=== PATIENT | female | born 1975 | race Caucasian/White ===

== ENCOUNTER 2022-10-23 08:31 | Emergency (ER) | payer MEDICAID, OTHER ==
[~2022-10-23] VITALS: Ht 172.7 cm; Wt 68.0 kg
[2022-10-23 08:39] VITALS: BP 131/73
[2022-10-23 09:24] LABS: Basophils # (auto) 0.1 10 ^3/uL (0-0.2); Basophils % (auto) 1.6 % (0.0-2.0); Eosinophils # (auto) 0.5 10 ^3/uL (0-0.8); Eosinophils % (auto) 7.3 % (0.0-7.0); Hematocrit 26.5 % (36.0-46.0); Hemoglobin 7.7 g/dL (12.2-16.2); Lymphocytes # (auto) 1.9 10 ^3/uL (0.4-5.4); Lymphocytes % (auto) 29.9 % (10.0-50.0); Mean Corpuscular Hemoglobin 20.6 pg (28.0-32.0); Mean Corpuscular Hgb Conc. 28.9 g/dL (32.0-36.0); Mean Corpuscular Volume 71.2 fL (80.0-100.0); Monocytes # (auto) 0.3 10 ^3/uL (0-1.3); Monocytes % (auto) 4.8 % (0.0-12.0); Neutrophils # (auto) 3.6 10 ^3/uL (1.6-8.6); Neutrophils % (auto) 56.4 % (37.0-80.0); Nucleated Red Blood Cells % 0.1 %; Red Blood Cells 3.72 10^6/uL (4.0-5.20); Red Cell Distribution Width 17.3 % (11.8-14.3); White Blood Cell 6.4 10^3/uL (4.4-10.8)
[2022-10-23 10:58] LABS: Urine Bacteria MANY /hpf (None Seen); Urine Blood Negative /uL (Negative); Urine WBC 2 /hpf (0 - 5)
[2022-10-23 11:18] LABS: Calcium 8.5 mg/dL (8.5-10.1); Potassium 3.7 mmol/L (3.5-5.1)
[2022-10-23 11:22] LABS: Albumin 3.5 g/dL (3.4-5.0); BUN/Creatinine Ratio 13.7
[2022-10-23 11:24] LABS: Bilirubin, Total 0.2 mg/dL (0.2-1.0); Total Protein 6.2 g/dL (6.4-8.2)
[2022-10-23] MEDS ORDERED: FERR-20 PO (11:42)
== END 2022-10-23 13:36 | disposition left against medical advice (07) ==
LOC: ER 08:31
DX: D64.9 Anemia, unspecified (principal); F41.9 Anxiety disorder, unspecified; Z88.5 Allergy status to narcotic agent
CPT/HCPCS: 36415; 71045; 80053; 81001; 83735; 84484; 85025; 93005

== ENCOUNTER 2022-12-30 06:13 | Inpatient (IN) | payer MEDICAID ==
[~2022-12-30] VITALS: Ht 170.2 cm; Wt 70.4 kg
[~2022-12-30 06:13] MED LIST: BACDST PO; FERR-20 PO; SUMA50TA2 PO
[2022-12-30 07:05] LABS: Basophils # (auto) 0.1 10 ^3/uL (0-0.2); Basophils % (auto) 1.3 % (0.0-2.0); Eosinophils # (auto) 0.3 10 ^3/uL (0-0.8); Monocytes # (auto) 0.6 10 ^3/uL (0-1.3); Neutrophils # (auto) 4.4 10 ^3/uL (1.6-8.6); White Blood Cell 9.1 10^3/uL (4.4-10.8)
[2022-12-30 07:09] LABS: Eosinophils % (auto) 3.2 % (0.0-7.0); Lymphocytes # (auto) 3.8 10 ^3/uL (0.4-5.4); Lymphocytes % (auto) 41.4 % (10.0-50.0); Mean Corpuscular Hemoglobin 18.8 pg (28.0-32.0); Mean Corpuscular Hgb Conc. 28.1 g/dL (32.0-36.0); Monocytes % (auto) 6.2 % (0.0-12.0); Neutrophils % (auto) 47.9 % (37.0-80.0); Nucleated Red Blood Cells % 0.1 %; Red Blood Cells 3.73 10^6/uL (4.0-5.20); Red Cell Distribution Width 18.2 % (11.8-14.3)
[2022-12-30 07:35] LABS: Albumin 3.8 g/dL (3.4-5.0); BUN/Creatinine Ratio 13.5; Calcium 8.3 mg/dL (8.5-10.1); Potassium 4.7 mmol/L (3.5-5.1)
[2022-12-30 07:39] LABS: Bilirubin, Total 0.3 mg/dL (0.2-1.0)
[2022-12-30 09:09] LABS: Urine Bacteria FEW /hpf (None Seen); Urine Blood Negative /uL (Negative); Urine Specific Gravity 1.004 (1.001-1.035); Urine WBC <1 /hpf (0 - 5)
[2022-12-30] MEDS ORDERED: ACETAMINOPHEN 325 MG TAB PO PRN (13:15)
[2022-12-30] MEDS ORDERED: MORPHINE SULFATE INJ 2 MG/ml SYRG IV PRN ×2 (13:15)
[2022-12-30] MEDS ORDERED: ONDANSETRON HCL 4 MG/2 ML VIAL IV PRN (13:15)
[2022-12-30] MEDS ORDERED: NITROGLYCERIN 0.4 MG SL TAB SL PRN (13:15)
[2022-12-30 13:40] LABS: % Iron Saturation 3.2 % (15-50)
[2022-12-30] MEDS ORDERED: PANTOPRAZOLE 40 MG/10 ML VIAL INJ IV ONE (13:45)
[2022-12-30] MEDS ORDERED: SUMAtriptan SUCCINATE 25 MG TAB PO PRN (14:00)
[2022-12-30 14:15] LABS: Ferritin 1.9 ng/mL (10-322)
[2022-12-30 14:26] LABS: INR 0.96 (0.9-1.15)
[2022-12-30 16:50] VITALS: BP 82/41
[2022-12-30 17:10] VITALS: BP 94/51
[2022-12-30 17:26] VITALS: BP 88/43
[2022-12-30 18:05] VITALS: BP 95/53
[2022-12-30 18:54] VITALS: BP 89/54
[2022-12-30] MEDS: FERROUS SULFATE 325mg EC TAB PO SCH (19:03)
[2022-12-30 19:45] VITALS: BP 103/70
[2022-12-30 22:14] LABS: Hematocrit 27.7 % (36.0-46.0); Hemoglobin 8.2 g/dL (12.2-16.2)
[2022-12-30] MEDS: HYDROcodone-ACET 5/325MG TAB PO PRN (22:29)
[2022-12-31] MEDS ORDERED: SODIUM CHLORIDE 0.9% 1,000 ML IV ONE (00:15)
[2022-12-31] MEDS: HYDROcodone-ACET 5/325MG TAB PO PRN ×2 (02:57→20:15)
[2022-12-31 06:36] LABS: Hemoglobin 7.5 g/dL (12.2-16.2)
[2022-12-31 06:40] LABS: Hematocrit 25.3 % (36.0-46.0); Mean Corpuscular Hemoglobin 20.8 pg (28.0-32.0); Mean Corpuscular Hgb Conc. 29.5 g/dL (32.0-36.0); Mean Corpuscular Volume 70.6 fL (80.0-100.0); Red Blood Cells 3.59 10^6/uL (4.0-5.20); White Blood Cell 5.3 10^3/uL (4.4-10.8)
[2022-12-31 06:53] LABS: Red Cell Distribution Width 21.2 % (11.8-14.3)
[2022-12-31 06:54] LABS: Band Neutrophils % (manual) 0; Basophils % (manual) 0 (0.0-2.0); Blast Cells 0; Eosinophils % (manual) 0 (0-7); Metamyelocytes % 0; Myelocytes % 0; Promyelocytes % 0; Reactive Lymphocytes 0
[2022-12-31 07:32] LABS: Albumin 3.1 g/dL (3.4-5.0); Potassium 3.9 mmol/L (3.5-5.1)
[2022-12-31 07:36] LABS: BUN/Creatinine Ratio 12.7; Bilirubin, Total 0.3 mg/dL (0.2-1.0); Total Protein 5.7 g/dL (6.4-8.2)
[2022-12-31] MEDS: PANTOPRAZOLE 40 MG/10 ML VIAL INJ IV SCH (08:16)
[2022-12-31] MEDS: FERROUS SULFATE 325mg EC TAB PO SCH ×2 (08:16→18:44)
[2022-12-31 08:38] LABS: Folate (Folic Acid) 6.61 ng/mL (5.38-24)
[2022-12-31 08:53] LABS: Lymphocytes % (manual) 68 (10.0-50.0); Monocytes % (manual) 6 (0-12)
[2022-12-31 18:06] VITALS: BP 118/70
[2022-12-31] MEDS ORDERED: IBUP800T26 PO (19:31)
[2022-12-31] MEDS ORDERED: PROP20TA73 PO (19:31)
[2022-12-31 22:00] VITALS: BP 90/48
[2023-01-01] MEDS: HYDROcodone-ACET 5/325MG TAB PO PRN ×3 (00:28→09:29)
[2023-01-01 05:00] VITALS: BP 91/51
[2023-01-01 06:37] LABS: Basophils # (auto) 0.1 10 ^3/uL (0-0.2); Hemoglobin 7.9 g/dL (12.2-16.2); Monocytes # (auto) 0.4 10 ^3/uL (0-1.3); Monocytes % (auto) 6.1 % (0.0-12.0); Nucleated Red Blood Cells % 0.1 %; White Blood Cell 7.1 10^3/uL (4.4-10.8)
[2023-01-01 06:38] LABS: Basophils % (auto) 1.9 % (0.0-2.0); Eosinophils # (auto) 0.4 10 ^3/uL (0-0.8); Eosinophils % (auto) 5.1 % (0.0-7.0); Hematocrit 25.7 % (36.0-46.0); Lymphocytes # (auto) 3.2 10 ^3/uL (0.4-5.4); Lymphocytes % (auto) 45.7 % (10.0-50.0); Mean Corpuscular Hemoglobin 21.5 pg (28.0-32.0); Mean Corpuscular Hgb Conc. 30.7 g/dL (32.0-36.0); Neutrophils # (auto) 2.9 10 ^3/uL (1.6-8.6); Neutrophils % (auto) 41.2 % (37.0-80.0); Red Blood Cells 3.67 10^6/uL (4.0-5.20)
[2023-01-01 06:47] LABS: BUN/Creatinine Ratio 18.8; Calcium 8.4 mg/dL (8.5-10.1); Potassium 3.9 mmol/L (3.5-5.1)
[2023-01-01 06:49] LABS: Red Cell Distribution Width 21.5 % (11.8-14.3)
[2023-01-01] MEDS ORDERED: BUTA1CAP PO (07:04)
[2023-01-01 08:00] VITALS: BP 93/52
[2023-01-01] MEDS ORDERED: FLUO60TA7 PO (08:14)
[2023-01-01] MEDS: FERROUS SULFATE 325mg EC TAB PO SCH (08:37)
[2023-01-01] MEDS: PANTOPRAZOLE 40 MG/10 ML VIAL INJ IV SCH (08:37)
[2023-01-01 09:00] VITALS: BP 93/52
[2023-01-01 11:31] VITALS: BP 93/52
== END 2023-01-01 14:58 | disposition left against medical advice (07) | DRG 663 ==
LOC: ER 06:13 → TELE 13:09 → TELE-WESTW 12-31 17:50
PROVIDERS: ADMIT Registered Nurse; ATTEND Internal Medicine Pulmonary Disease
PROC: 30233N1 Transfusion of Nonautologous Red Blood Cells into Peripheral Vein, Percutaneous Approach (ICD-10-PCS; principal; 2022-12-30)
DX: D62 Acute posthemorrhagic anemia (principal); E66.01 Morbid (severe) obesity due to excess calories; G43.909 Migraine, unspecified, not intractable, without status migrainosus; I10 Essential (primary) hypertension; F41.9 Anxiety disorder, unspecified; Z53.29 Procedure and treatment not carried out because of patient's decision for other reasons; Z82.49 Family history of ischemic heart disease and other diseases of the circulatory system; Z98.84 Bariatric surgery status; Z68.24 Body mass index [BMI] 24.0-24.9, adult
CPT/HCPCS: 36415; 80048; 80053; 81001; 82607; 82728; 82746; 83540; 83550; 83615; 85007; 85014; 85018; 85025; 85027; 85045; 85049; 85384; 85610; 86850; 86900; 86901; 86920; 87426; 96361; 96374; C9113; G0378

== ENCOUNTER 2023-01-17 04:14 | Emergency (ER) | payer MEDICAID ==
[~2023-01-17] VITALS: Ht 170.2 cm; Wt 68.2 kg
[~2023-01-17 04:14] MED LIST changes: +BUTA1CAP PO; +FLUO60TA7 PO; +IBUP800T26 PO; +PROP20TA73 PO
[2023-01-17 05:20] VITALS: BP 110/62
[2023-01-17 05:31] LABS: Urine Bacteria MOD /hpf (None Seen); Urine Blood Negative /uL (Negative); Urine Specific Gravity 1.008 (1.001-1.035); Urine WBC <1 /hpf (0 - 5)
[2023-01-17 05:53] LABS: Eosinophils # (auto) 0.3 10 ^3/uL (0-0.8); Nucleated Red Blood Cells % 0.1 %
[2023-01-17 06:00] LABS: Basophils # (auto) 0 10 ^3/uL (0-0.2); Basophils % (auto) 0.6 % (0.0-2.0); Eosinophils % (auto) 4.2 % (0.0-7.0); Lymphocytes # (auto) 3.8 10 ^3/uL (0.4-5.4); Lymphocytes % (auto) 48.4 % (10.0-50.0); Mean Corpuscular Hemoglobin 21.2 pg (28.0-32.0); Mean Corpuscular Hgb Conc. 30.8 g/dL (32.0-36.0); Mean Corpuscular Volume 68.7 fL (80.0-100.0); Monocytes # (auto) 0.5 10 ^3/uL (0-1.3); Neutrophils # (auto) 3.2 10 ^3/uL (1.6-8.6); Neutrophils % (auto) 40.8 % (37.0-80.0); Red Blood Cells 3.79 10^6/uL (4.0-5.20); White Blood Cell 7.8 10^3/uL (4.4-10.8)
[2023-01-17 06:01] LABS: Red Cell Distribution Width 25.1 % (11.8-14.3)
[2023-01-17 06:11] LABS: Albumin 3.4 g/dL (3.4-5.0); Calcium 8.2 mg/dL (8.5-10.1); Potassium 3.9 mmol/L (3.5-5.1)
[2023-01-17 06:17] LABS: BUN/Creatinine Ratio 16.4 (10.0-20.0); Bilirubin, Total 0.2 mg/dL (0.2-1.0); Total Protein 6.5 g/dL (6.4-8.2)
== END 2023-01-17 07:38 | disposition home or self-care (01) ==
LOC: ER 04:14
DX: D64.9 Anemia, unspecified (principal); Z88.2 Allergy status to sulfonamides
CPT/HCPCS: 36415; 80053; 81001; 85025; 86850; 86900; 86901

== ENCOUNTER 2023-03-05 09:16 | Inpatient (IN) | payer MEDICAID ==
[~2023-03-05] VITALS: Ht 170.2 cm; Wt 67.7 kg
[2023-03-05 09:50] LABS: Hematocrit 29.1 % (36.0-46.0); Hemoglobin 8.8 g/dL (12.2-16.2); Lymphocytes # (auto) 2.2 10 ^3/uL (0.4-5.4); Lymphocytes % (auto) 44.3 % (10.0-50.0); Mean Corpuscular Hemoglobin 21.7 pg (28.0-32.0); Mean Corpuscular Hgb Conc. 30.2 g/dL (32.0-36.0); Neutrophils # (auto) 2.2 10 ^3/uL (1.6-8.6); Red Blood Cells 4.05 10^6/uL (4.0-5.20); White Blood Cell 4.9 10^3/uL (4.4-10.8)
[2023-03-05 09:52] LABS: Basophils # (auto) 0 10 ^3/uL (0-0.2); Eosinophils # (auto) 0.2 10 ^3/uL (0-0.8); Eosinophils % (auto) 3.1 % (0.0-7.0); Mean Corpuscular Volume 71.9 fL (80.0-100.0); Monocytes # (auto) 0.4 10 ^3/uL (0-1.3); Monocytes % (auto) 7.3 % (0.0-12.0); Neutrophils % (auto) 44.3 % (37.0-80.0); Nucleated Red Blood Cells % 0.1 %
[2023-03-05 10:13] LABS: Potassium 3.5 mmol/L (3.5-5.1)
[2023-03-05 10:25] LABS: Albumin 3.6 g/dL (3.4-5.0); BUN/Creatinine Ratio 11.6 (10.0-20.0); Bilirubin, Total 0.2 mg/dL (0.2-1.0); Calcium 8.6 mg/dL (8.5-10.1); Total Protein 6.8 g/dL (6.4-8.2)
[2023-03-05 11:56] LABS: Urine Bacteria NONE SEEN /hpf (None Seen); Urine Blood Negative /uL (Negative); Urine Specific Gravity 1.014 (1.001-1.035); Urine WBC <1 /hpf (0 - 5)
[2023-03-05] MEDS ORDERED: ACETAMINOPHEN 500 MG TAB PO ONE (14:30)
[2023-03-05] MEDS ORDERED: SODIUM CHLORIDE 0.9% 1,000 ML IV ONE (14:30)
[2023-03-05] MEDS ORDERED: MORPHINE SULFATE INJ 2 MG/ml SYRG IV PRN (15:45)
[2023-03-05] MEDS ORDERED: NITROGLYCERIN 0.4 MG SL TAB SL PRN (15:45)
[2023-03-05] MEDS ORDERED: ACETAMINOPHEN 325 MG TAB PO PRN (15:45)
[2023-03-05] MEDS: SODIUM CHLORIDE 0.9% 1,000 ML IV SCH ×2 (18:24→23:12)
[2023-03-05] MEDS: FERROUS SULFATE 325mg EC TAB PO SCH (18:29)
[2023-03-05] MEDS: MORPHINE SULFATE INJ 2 MG/ml SYRG IV PRN ×2 (18:30→23:11)
[2023-03-05 20:44] LABS: Alcohol, Urine < 3.0 mg/dL (0-10); Barbiturate Scree,Urine POSITIVE (NEGATIVE); Benzodiazephine Screen, Urine NEGATIVE (NEGATIVE); Cannabinoid Screen, Urine NEGATIVE (NEGATIVE); Cocaine Screen, Urine NEGATIVE (NEGATIVE); Opiate Scree,Urine NEGATIVE (NEGATIVE); Phencyclidine Screen, Urine NEGATIVE (NEGATIVE)
[2023-03-05 20:51] LABS: Amphetamine Screen, Urine NEGATIVE (NEGATIVE)
[2023-03-05] MEDS: SUMAtriptan SUCCINATE 25 MG TAB PO PRN (21:34)
[2023-03-05 22:12] VITALS: BP 108/57
[2023-03-06 05:00] VITALS: BP 97/52
[2023-03-06] MEDS: HYDROcodone-ACET 5/325MG TAB PO PRN ×3 (05:27→17:48)
[2023-03-06 06:15] LABS: Basophils # (auto) 0.1 10 ^3/uL (0-0.2); Basophils % (auto) 1.4 % (0.0-2.0); Eosinophils # (auto) 0.2 10 ^3/uL (0-0.8)
[2023-03-06 06:18] LABS: Eosinophils % (auto) 2.5 % (0.0-7.0); Hematocrit 26.4 % (36.0-46.0); Lymphocytes # (auto) 2.6 10 ^3/uL (0.4-5.4); Mean Corpuscular Hemoglobin 22.1 pg (28.0-32.0); Mean Corpuscular Hgb Conc. 30.2 g/dL (32.0-36.0); Mean Corpuscular Volume 73.1 fL (80.0-100.0); Monocytes # (auto) 0.3 10 ^3/uL (0-1.3); Monocytes % (auto) 5.6 % (0.0-12.0); Neutrophils # (auto) 2.9 10 ^3/uL (1.6-8.6); Neutrophils % (auto) 47.5 % (37.0-80.0); Nucleated Red Blood Cells % 0.1 %; Red Blood Cells 3.62 10^6/uL (4.0-5.20); White Blood Cell 6.1 10^3/uL (4.4-10.8)
[2023-03-06 06:19] LABS: Red Cell Distribution Width 21.3 % (11.8-14.3)
[2023-03-06] MEDS: SODIUM CHLORIDE 0.9% 1,000 ML IV SCH ×3 (06:24→22:30)
[2023-03-06 06:31] LABS: Albumin 3.1 g/dL (3.4-5.0); Calcium 8.1 mg/dL (8.5-10.1); Potassium 3.7 mmol/L (3.5-5.1)
[2023-03-06 06:35] LABS: BUN/Creatinine Ratio 9.3 (10.0-20.0); Bilirubin, Total 0.3 mg/dL (0.2-1.0)
[2023-03-06 08:30] VITALS: BP 101/50
[2023-03-06] MEDS: FERROUS SULFATE 325mg EC TAB PO SCH ×2 (09:54→17:10)
[2023-03-06] MEDS: FLUoxetine HCL 20 MG CAP PO SCH (09:54)
[2023-03-06] MEDS ORDERED: KETOROLAC TROMETH 30 MG/ML 1ML VIAL IV ONE (10:00)
[2023-03-06] MEDS: MORPHINE SULFATE INJ 2 MG/ml SYRG IV PRN (10:02)
[2023-03-06] MEDS: MAGNESIUM OXIDE 400 MG TAB PO SCH (11:39)
[2023-03-06 12:30] VITALS: BP 105/64
[2023-03-06] MEDS: ONDANSETRON HCL 4 MG/2 ML VIAL IV PRN ×2 (15:12→19:28)
[2023-03-06 16:45] VITALS: BP_SYST 106; BP_SYST 115; BP_SYST 97; BP_DIAS 53; BP_DIAS 61; BP_DIAS 64
[2023-03-06 17:00] VITALS: BP 97/53
[2023-03-06 22:00] VITALS: BP 116/55
[2023-03-07] VITALS (8 sets, daily range): BP systolic 92–143; BP diastolic 48–72
[2023-03-07] MEDS: HYDROcodone-ACET 5/325MG TAB PO PRN ×5 (00:04→22:52)
[2023-03-07] MEDS: SODIUM CHLORIDE 0.9% 1,000 ML IV SCH (06:29)
[2023-03-07 08:56] LABS: Basophils # (auto) 0.1 10 ^3/uL (0-0.2); Eosinophils # (auto) 0.2 10 ^3/uL (0-0.8); Lymphocytes # (auto) 1.6 10 ^3/uL (0.4-5.4); Monocytes # (auto) 0.3 10 ^3/uL (0-1.3); Nucleated Red Blood Cells % 0.2 %
[2023-03-07 08:58] LABS: Basophils % (auto) 1.6 % (0.0-2.0); Eosinophils % (auto) 5.4 % (0.0-7.0); Lymphocytes % (auto) 44.6 % (10.0-50.0); Mean Corpuscular Hgb Conc. 30.8 g/dL (32.0-36.0); Mean Corpuscular Volume 71.4 fL (80.0-100.0); Monocytes % (auto) 7.5 % (0.0-12.0); Neutrophils # (auto) 1.5 10 ^3/uL (1.6-8.6); Neutrophils % (auto) 40.9 % (37.0-80.0); Red Blood Cells 3.08 10^6/uL (4.0-5.20); White Blood Cell 3.6 10^3/uL (4.4-10.8)
[2023-03-07] MEDS: FERROUS SULFATE 325mg EC TAB PO SCH ×2 (08:58→18:21)
[2023-03-07] MEDS: MAGNESIUM OXIDE 400 MG TAB PO SCH (08:58)
[2023-03-07] MEDS: FLUoxetine HCL 20 MG CAP PO SCH (08:59)
[2023-03-07 09:16] LABS: Red Cell Distribution Width 21.6 % (11.8-14.3)
[2023-03-07 09:23] LABS: Hemoglobin 6.8 g/dL (12.2-16.2)
[2023-03-08] MEDS: HYDROcodone-ACET 5/325MG TAB PO PRN ×5 (03:04→21:27)
[2023-03-08 05:00] VITALS: BP 116/68
[2023-03-08 06:26] LABS: Hematocrit 29.3 % (36.0-46.0); Monocytes # (auto) 0.4 10 ^3/uL (0-1.3); Neutrophils # (auto) 2.3 10 ^3/uL (1.6-8.6); Red Blood Cells 4.02 10^6/uL (4.0-5.20); White Blood Cell 5.7 10^3/uL (4.4-10.8)
[2023-03-08 06:29] LABS: Basophils # (auto) 0 10 ^3/uL (0-0.2); Basophils % (auto) 0.8 % (0.0-2.0); Eosinophils # (auto) 0.2 10 ^3/uL (0-0.8); Eosinophils % (auto) 3.6 % (0.0-7.0); Lymphocytes # (auto) 2.7 10 ^3/uL (0.4-5.4); Lymphocytes % (auto) 48.2 % (10.0-50.0); Mean Corpuscular Hemoglobin 22.4 pg (28.0-32.0); Mean Corpuscular Hgb Conc. 30.7 g/dL (32.0-36.0); Monocytes % (auto) 6.9 % (0.0-12.0); Neutrophils % (auto) 40.5 % (37.0-80.0)
[2023-03-08 06:43] LABS: Red Cell Distribution Width 20.7 % (11.8-14.3)
[2023-03-08] MEDS: MAGNESIUM OXIDE 400 MG TAB PO SCH (08:09)
[2023-03-08] MEDS: FLUoxetine HCL 20 MG CAP PO SCH (08:10)
[2023-03-08] MEDS: FERROUS SULFATE 325mg EC TAB PO SCH ×2 (08:10→17:34)
[2023-03-08 09:00] VITALS: BP 109/67
[2023-03-08] MEDS ORDERED: SUMAtriptan SUCCINATE 25 MG TAB PO ONE (11:30)
[2023-03-08] MEDS: SUMAtriptan SUCCINATE 25 MG TAB PO PRN (12:10)
[2023-03-08 13:00] VITALS: BP 125/66
[2023-03-08 16:43] VITALS: BP 125/68
[2023-03-08 22:00] VITALS: BP 104/58
[2023-03-09] MEDS: HYDROcodone-ACET 5/325MG TAB PO PRN ×3 (01:21→09:54)
[2023-03-09 05:00] VITALS: BP 119/69
[2023-03-09] MEDS: FERROUS SULFATE 325mg EC TAB PO SCH (08:18)
[2023-03-09 09:00] VITALS: BP 117/75
[2023-03-09] MEDS: MAGNESIUM OXIDE 400 MG TAB PO SCH (09:54)
[2023-03-09] MEDS: FLUoxetine HCL 20 MG CAP PO SCH (09:55)
[2023-03-09] MEDS: SUMAtriptan SUCCINATE 25 MG TAB PO PRN (09:55)
[2023-03-09 13:00] VITALS: BP 124/58
== END 2023-03-09 13:30 | disposition home or self-care (01) | DRG 201 ==
LOC: ER 09:16 → EDBD 09:16 → TELE 15:42 → TELE-WESTW 22:10
PROVIDERS: ADMIT Registered Nurse; ATTEND Internal Medicine Geriatric Medicine
PROC: 30233N1 Transfusion of Nonautologous Red Blood Cells into Peripheral Vein, Percutaneous Approach (ICD-10-PCS; principal; 2023-03-07)
DX: R00.1 Bradycardia, unspecified (principal); G90.A Postural orthostatic tachycardia syndrome [POTS]; G43.909 Migraine, unspecified, not intractable, without status migrainosus; D64.9 Anemia, unspecified; T44.7X5A Adverse effect of beta-adrenoreceptor antagonists, initial encounter; F17.200 Nicotine dependence, unspecified, uncomplicated; E78.5 Hyperlipidemia, unspecified; F41.9 Anxiety disorder, unspecified; Z98.84 Bariatric surgery status; Z87.11 Personal history of peptic ulcer disease; Y92.89 Other specified places as the place of occurrence of the external cause
CPT/HCPCS: 36415; 70450; 71045; 80053; 80307; 81001; 82306; 82533; 83735; 83880; 84443; 84484; 85025; 86850; 86900; 86901; 86920; 93005; 93306; 93886; 96360; G0378; J1885; J2405

== ENCOUNTER 2025-05-24 13:17 | Emergency (ER) | payer MEDICAID ==
[~2025-05-24] VITALS: Ht 170.2 cm; Wt 68.2 kg
[~2025-05-24 13:17] MED LIST changes: -FERR-20 PO; +FERR325T24 PO; +IBUP-1455 PO; -IBUP800T26 PO; +PROP1TAB53 PO; -PROP20TA73 PO
[2025-05-24 13:33] VITALS: BP 118/60; PULSE 88; RESP 15; TEMP 98.9; O2SAT 100
--- NOTE | 2025-05-24 13:33 | ED.PDOC ---
Back pain HPI HPI Comments 49 y.o female with PMHx of POTS and chronic neck pain, presents to the ED via EMS for a chief complaint of lower back pain radiating to lower extremity. Patient reports back pain presented yesterday when she bent over to pick a bucket up from the ground, states she woke up with a soreness sensation today and sharp right lower extremity pain. Patient described right sided leg as a heaviness sensation with a tingling to bilateral feet. Patient rates pain a 6/10 on the pain scale, states pain is more so on the RLE. She denies any falls, numbness sensation, fever, previous back injuries or surgical intervention. Patient took Gabapentin and Ibuprofen prior to EMS arrival and had some pain relief. Patient notes pain improves when laying flat. Chief Complaint: Back Pain Time Seen by MD: 13:24 Primary Care Provider: Unknown Reviewed Notes: Nurses Notes, Olive Grader Notes, Medications, Allergies Allergies: Coded Allergies: NO KNOWN ALLERGIES (Unverified , 12/30/22) Home Meds Active Scripts Tramadol HCl (Tramadol HCl) 50 Mg Tab, 50 MG PO Q12HP PRN for 7 Days, #14 TAB Prov:THOMAS PERDUE MD 05/24/25 Sulfamethoxazole W/Trimethopri (Bactrim Ds Tablet) 1 Tab Tb, 1 TAB PO BID for 7 Days, #14 TAB Prov:GHISLAINE DICKINSON 10/27/22 Sumatriptan Succinate (Imitrex) 50 Mg Tab, 1 TAB PO BID, #20 TAB Prov:GHISLAINE DICKINSON 10/27/22 Ferrous Sulfate (Ferrous Sulfate) 325 Mg Tab, 325 MG PO BIDWM for 10 Days, #20 MG Prov:ADALBERTO HARMAN MD 10/23/22 Reported Medications Fluoxetine HCl (Fluoxetine) 60 Mg Tab, 20 MG PO DAILY for depression, TAB 01/01/23 Awwevvanrv-Winfghtmvcont-Wgabg (Butalbital/Acetaminophen/ 50-300-40 mg) 1 Cap Cap, 1 CAP PO Q4HR, CAP 01/01/23 Ibuprofen Micronized (Ibuprofen) 800 Mg Tab, 1 TAB PO TID 12/31/22 Propranolol HCl (Propranolol Hydrochloride) 20 Mg Tab, 2 TAB PO QID 12/31/22 Information Source: Patient Mode of Arrival: EMS Timing: Hours Duration: Since onset Location of Back pain: (B) Lower back Radiates to: Posterior: (R) Thigh Radiates to: Medial: (R) Thigh Quality: Sharp Onset: Bending History of: None Past Medical History PAST MEDICAL HISTORY: Anemia, Anxiety Past Medical History (Other): POTS Surgical History: Tonsillectomy Surgical History (Other): Right knee replacement, Sigmoid volvulus and ulcer repair SHIPPING INSPECTOR History: No Pertinent SHIPPING INSPECTOR History Family History Family History: Reviewed,noncontributory to illness Social History Smoker: Other Alcohol: Denies ETOH Use Drugs: Denies Drug Use Lives In: Home Constitutional: denies: chills, diaphoresis, fatigue, fever, malaise, sweats, weakness, others EENTM: denies: blurred vision, double vision, ear bleeding, ear discharge, ear drainage, ear pain, ear ringing, eye pain, eye redness, hearing loss, mouth pain, mouth swelling, nasal discharge, nose bleeding, nose congestion, nose pain, photophobia, tearing, throat pain, throat swelling, voice changes, others Respiratory: denies: cough, hemoptysis, orthopnea, SOB at rest, shortness of breath, SOB with excertion, stridor, wheezing, others Cardiovascular: denies: chest pain, dizzy spells, diaphoresis, Dyspnea on exertion, edema, irregular heart beat, left arm pain, lightheadedness, palpitations, PND, syncope, others Gastrointestinal: denies: abdomen distended, abdominal pain, blood streaked bowels, constipated, diarrhea, dysphagia, difficulty swallowing, hematemesis, melena, nausea, poor appetite, poor fluid intake, rectal bleeding, rectal pain, vomiting, others Genitourinary: denies: abnormal vagina bleeding, burning, dyspareunia, dysuria, flank pain, frequency, hematuria, incontinence, pain, , vagina discharge, urgency, others Neurological: denies: dizziness, fainting, headache, left sided numbness, left sided weakness, numbness, paresthesia, pre-existing deficit, right sided numbness, right sided weakness, seizure, speech problems, tingling, tremors, weakness, others Musculoskeletal: reports: back pain, others (right lower leg pain ); denies: gout, joint pain, joint swelling, muscle pain, muscle stiffness, neck pain Integumetry: denies: bruises, change in color, change in hair/nails, dryness, laceration, lesions, lumps, rash, wounds, others Allergic/Immunocompromised: denies: Difficulty Healing, Frequent Infections, Hives, Itching, others Hematologic/Lymphatic: denies: anemia, blood clots, easy bleeding, easy bruising, swollen glands, others Endocrine: denies: excessive hunger, excessive sweating, excessive thirst, excessive urination, flushing, intolerance to cold, intolerance to heat, unexplained weight gain, unexplained weight loss, others Psychiatric: denies: anxiety, bipolar disorder, depression, hopeless, panic disorder, schizophrenia, sleepless, suicidal, others All Other Systems: Reviewed and Negative Physical Exam General Appearance: Mild Distress HEENT: Normal ENT Inspection, Pharynx Normal, TMs Normal Neck: Full Range of Motion, Non-Tender, Normal, Normal Inspection Respiratory: Chest Non-Tender, Lungs Clear, No Accessory Muscle Use, No Respiratory Distress, Normal Breath Sounds Cardiovascular: No Edema, No JVD, No Murmur, No Gallop, Normal Peripheral Pulses, Regular Rate/Rhythm Breast Exam: Deferred Gastrointestinal: No Organomegaly, Non Tender, No Pulsatile Mass, Normal Bowel Sounds, Soft Genitalia: Deferred Pelvic: Deferred Rectal: Deferred Extremities: No calf tenderness, Normal capillary refill, Normal inspection, Normal range of motion, Non-tender, No pedal edema Musculoskeletal : Location: Bilateral Extremity Location: Back Apperance: Limited ROM, Tenderness: Mild Neurologic: Alert, big data developer II-XII nml as Tested, No Motor Deficits, Normal Affect, Normal Mood, No Sensory Deficits Cerebellar Function: Normal Reflexes: Normal Skin: Dry, Normal Color, Warm Lymphatic: No Adenopathy Was a procedure done? Was a procedure done?: No Back Pain Differential Dx Differential Diagnosis: DJD, Fracture, Musculoskeletal Pain, Strain X-Ray, Labs, Meds, VS Vital Signs Date Time Temp Pulse Resp B/P (MAP) Pulse Ox O2 Delivery O2 Flow Rate FiO2 05/24/25 13:33 98.9 88 15 118/60 (79) 100 98.9 EXAM: XY LUMBAR SPINE 3 VIEW IMPRESSION: No acute fracture or traumatic malalignment. Multilevel lumbar spondylosis with moderate degenerative disc space narrowing at L3-L4 and L4-L5. The patient is given a prescription of tramadol The patient will return to the emergency department's the condition worsens The patient understands and agrees with the management Images Reviewed?: Images reviewed and evaluated by me Time of 1ST Reevaluation: 13:32 Reevaluation 1ST: Unchanged Patient Education/Counseling: Diagnosis, Treatment, Prognosis, Need For Follow Up Family Education/Counseling: No Family Present SEPSIS Sepsis Screen Physician Orders Lumbar Spine 3 View (05/24/25 13:27) Vital Signs Date Time Temp Pulse Resp B/P (MAP) Pulse Ox O2 Delivery O2 Flow Rate FiO2 05/24/25 13:33 98.9 88 15 118/60 (79) 100 98.9 Departure 1 Departure Time of Disposition: 14:33 Impression: Primary Impression: Lumbar strain Qualified Codes: S39.012A - Strain of muscle, fascia and tendon of lower back, initial encounter Disposition: HOME / SELF CARE / HOMELESS Condition: Fair e-Prescriptions Tramadol HCl (Tramadol HCl) 50 Mg Tab 50 MG PO Q12HP PRN for 7 Days, #14 TAB Prov: THOMAS PERDUE MD 05/24/25 Discharged With: Self Critical Care Note Critical Care Time?: No Stability Stability form required: No I personally scribed for THOMAS PERDUE MD ([email or web address]) on 05/24/25 at 13:33. Electronically submitted by Samantha Parra ([facility]). I personally scribed for THOMAS PERDUE MD ([email or web address]) on 05/24/25 at 14:19. Electronically submitted by Samantha Parra ([facility]). THOMAS PERDUE MD May 24, 2025 13:33
--- NOTE | 2025-05-24 14:11 | DVH ---
EXAM: XY LUMBAR SPINE 3 VIEW HISTORY: Low back pain COMPARISON: None TECHNIQUE: AP and lateral views of the lumbar spine and spot lateral of the lumbosacral junction were performed. FINDINGS: There are 5 [id number] lumbar type vertebral bodies. Mild right lateral convexity curvature of t he lumbar spine. The pedicles are intact. Sacroiliac joints are maintained. The visualized hip joint s are maintained. Straightening of the lumbar lordosis. Vertebral body heights are maintained. No ac gambell fracture. There is multilevel lumbar spondylosis with multilevel degenerative disc space narrowin g which is moderate at L3-L4 and L4-L5. Overlying soft tissues are intact. IUD projects over the pelv is to the left of midline. Visualized bowel gas is nonobstructed. IMPRESSION: No acute fracture or traumatic malalignment. Multilevel lumbar spondylosis with moderate degenerative disc space narrowing at L3-L4 and L4-L5.
[2025-05-24] MEDS ORDERED: TRAM-626 PO (14:32)
== END 2025-05-24 15:46 | disposition home or self-care (01) ==
LOC: ER 13:17 → EDBD 13:17 → ER 15:46
DX: S39.012A Strain of muscle, fascia and tendon of lower back, initial encounter (principal); F41.9 Anxiety disorder, unspecified; F17.200 Nicotine dependence, unspecified, uncomplicated; Z79.899 Other long term (current) drug therapy; Z90.89 Acquired absence of other organs; X58.XXXA Exposure to other specified factors, initial encounter; Y93.89 Activity, other specified; Y92.89 Other specified places as the place of occurrence of the external cause; Y99.8 Other external cause status
CPT/HCPCS: 72100